=== PATIENT | male | born 1990 | race American Indian/Alaskan Native ===

== ENCOUNTER 2019-08-12 21:56 | Inpatient (IN) | payer OTHER ==
--- NOTE | 2019-08-12 22:27 | Emergency Department Report ---
ED General Adult HPI - General Chief complaint: Psych Stated complaint: METH OD Time Seen by Provider: 08/12/19 22:17 Source: patient, EMS ( EMS documentation not available at time of chart dictation ), RN notes reviewed Mode of arrival: Ambulatory Limitations: No Limitations - History of Present Illness Initial comments: The patient is a 28-year-old gentleman. He is not known to myself previously. He is sent to the emergency room for medical clearance. The patient himself denies physical pain. He states that he had a panic/anxiety attack earlier on today, and recreationally purchased some methamphetamine off of a cellular phone [employer] chicho. He reports that he purchased this for recreational and therapeutic reasons, and denies homicidality and suicidality. He denies coingestions. He denies physical pain at this time. He has no medical complaints at this time. Apparently, he is at a local detox center, and he ran off for 2 days, and r eappeared today. At the moment, the patient is not accompanied by friends, family members or anybody else for additional collateral information. Improves with: none Worsens with: none Associated Symptoms: denies other symptoms - Related Data Allergies Allergy/AdvReac Type Severity Reaction Status Date / Time No Known Allergies Allergy Unverified 08/12/19 22:05 ED Review of Systems ROS: Stated complaint: METH OD Other details as noted in HPI Comment: All other systems reviewed and negative ED Past Medical Hx - Past Medical History Previous Medical History?: No - Surgical History Past Surgical History?: No - Social History Smoking Status: Never Smoker Substance Use Type: Cocaine, Methamphetamines ED Physical Exam - General Limitations: No Limitations General appearance: alert, anxious, obese - Head Head exam: Present: atraumatic, normocephalic - Eye Eye exam: Present: normal appearance, PERRL, EOMI, other (Visual acuity intact to finger counting, color perception, reading at a close distance). Absent: nystagmus - ENT ENT exam: Present: normal exam, normal orophraynx, mucous membranes moist, normal external ear exam - Neck Neck exam: Present: normal inspection, full ROM. Absent: tenderness, meningismus - Respiratory Respiratory exam: Present: normal lung sounds bilaterally. Absent: respiratory distress - Cardiovascular Cardiovascular Exam: Present: normal rhythm, tachycardia, normal heart sounds. Absent: systolic murmur, diastolic murmur, rubs, gallop - GI/Abdominal GI/Abdominal exam: Present: soft. Absent: distended, tenderness, guarding, rebound, rigid, pulsatile mass - Rectal Rectal exam: Present: deferred - Extremities Exam Extremities exam: Present: normal inspection, full ROM, other (2+ pulses noted in the bilateral upper and lower extremities. There is no palpable cord. negative Homans sign. Muscular compartments are soft. The pelvis is stable.). Absent: pedal edema - Back Exam Back exam: Present: normal inspection. Absent: tenderness, CVA tenderness (R), CVA tenderness (L), paraspinal tenderness, vertebral tenderness - Neurological Exam Neurological exam: Present: alert, oriented X3, normal gait, other (There is no facial droop. The tongue is midline. Extraocular movements are intact bilaterally. There is 5 out of 5 strength in bilateral upper and lower extrem ities. Sensation is intact to light touch bilateral upper and lower extremities. There is no past-pointing. There is no pronator drift. There is normal [id number]. There is a normal gait.). Absent: motor sensory deficit - Psychiatric Psychiatric exam: Present: anxious. Absent: homicidal ideation, suicidal ideation - Skin Skin exam: Present: warm ED Course Vital Signs 08/12/19 08/12/19 08/12/19 21:58 22:04 22:07 Temperature 99.1 F Pulse Rate 115 H 122 H Respiratory 19 16 19 Rate Blood Pressure 142/94 [Left] O2 Sat by Pulse 97 Oximetry - Reevaluation(s) Reevaluation #1: 08/12/19 23:42 Change in plans. Patient has CK of 9445,, mild renal insufficiency, meeting definition criteria for rhabdomyolysis. Patient meets criteria for overnight hospitalization/observation/admission for the aforementioned. I discussed plan of care for admission with patient, who verbalized understanding, and who is amenable to this plan of care. I contacted the hospital physician, Dr. Maricarmen Lennon, who has accepted the patient to the medical service. ED Medical Decision Making - Lab Data Result diagrams: 08/12/19 22:35 Vital Signs 08/12/19 08/12/19 08/12/19 21:58 22:04 22:07 Temperature 99.1 F Pulse Rate 115 H 122 H Respiratory 19 16 19 Rate Blood Pressure 142/94 [Left] O2 Sat by Pulse 97 Oximetry - EKG Data -: EKG Interpreted by Me EKG shows normal: sinus rhythm Rate: tachycardia - EKG Data When compared to previous EKG there are: previous EKG unavailable 08/12/19 23:09 This is a sinus rhythm, tachycardia, left axis deviation, left anterior fascicular block, atrial enlargement, poor R wave progression, Q waves noted in the high lateral leads, the EKG is abnormal, there is no prior for comparison, it is not a STEMI - Medical Decision Making Differential diagnosis, including but not limited to: Medical clearance, methamphetamine utilization Assessment and plan: 28-year-old gentleman status post self therapeutic/recreational use of methamphetamine, who is currently afebrile with reassuring vital signs, tachycardia resolved on my exam, when I walked into the room, he is sleeping comfortably, with a heart rate of 103 bpm. He does not endorse any medical complaints at this time. He is alert and oriented x3, clinically sober, walks with a steady gait, he is able to add 5+5, subtract 100-7, multiply 55, and he exhibits decision-making capacity at this time. Screening laboratory studies are sent to exclude myositis, and accidental overdose of aspirin and/or acetaminophen. He is amenable to this plan of care. He was counseled to abstain from consuming recreational drugs. He verbalizes understanding. Critical care attestation.: If time is entered above; I have spent that time in minutes in the direct care of this critically ill patient, excluding procedure time. ED Disposition Clinical Impression: Rhabdomyolysis, Methamphetamine abuse Disposition: OP ADMIT IP TO THIS HOSP Is pt being admited?: Yes Does the pt Need Aspirin: No Condition: Stable Additional Instructions: Recommend that patient not consume methamphetamine or recreational drugs. Recreational drug consumption, along with alcohol consumption and tobacco consumption may cause addiction, disability, , paralysis, loss of quality of life. Recommend follow-up with a primary care doctor within 4 to 6 weeks. Drink 4 to 6 cups of water per day, and take a multivitamin [id number]. Return to the emergency room right away with new, worsened or different symptoms, or symptoms not present on the initial emergency room evaluation. At the moment, the patient does not appear to have an immediate medical contraindication to outpatient discharge, and return to his outpatient detox facility. Referrals: CONCHA VILLAFUERTE MD [Staff Physician] - as needed [facility] [Provider Group] - as needed
[2019-08-12 23:15] LABS: Calcium 9.5 mg/dL (8.4-10.2)
[2019-08-12] MEDS ORDERED: SODIUM CHLORIDE 0.9% 1000 ML 2,000 ML IV ONE (23:39)
[2019-08-12] MEDS ORDERED: SODIUM CHLORIDE 0.9% 1000 ML 1,000 ML IV ONE (23:39)
[2019-08-12] MEDS ORDERED: SODIUM BICARB 8.4% 50 MEQ/50 ML SYRINGE IV ONE (23:40)
[2019-08-12] MEDS ORDERED: diazePAM 10 MG/2 ML SYRINGE IV ONE (23:41)
[2019-08-13] MEDS ORDERED: MAGNESIUM HYDROXIDE (MOM) ORAL LIQD UDC PO PRN (00:06)
[2019-08-13] MEDS ORDERED: ACETAMINOPHEN 325 MG TAB PO PRN (00:06)
[2019-08-13] MEDS ORDERED: ONDANSETRON 4 MG/2 ML INJ IV PRN (00:06)
--- NOTE | 2019-08-13 00:49 | History and Physical Report ---
History of Present Illness Date of examination: 08/13/19 Date of admission: 08/12/19 23:44 Chief complaint: Methamphetamine Ingestion History of present illness: Patient is a 28-year-old male who presents to the emergency room today for medical clearance. He states he has been having some anxiety and admits to taking methamphetamine which he got over an online chicho. He took the medication for recreational and therapeutic purposes and denies any suicidal homicidal ideations. He denies taking any other illicit drug. He was at the local detox center recently and ran of for about 2 days and later reappeared today at the facility. He initially had some chest pain which has since resolved. He denies any shortness of breath, no fever or chills, no nausea vomiting and no abdominal pain. Work-up in the emergency room reveals elevated creatinine kinase and a slightly elevated creatinine level. Past History Past Medical History: No medical history Past Surgical History: No surgical history Social history: other (Methamphetamine abuse, cocaine abuse) Family history: diabetes (Father has history of diabetes mellitus), hypertension (Father has history of hypertension) Medications and Allergies Allergies Allergy/AdvReac Type Severity Reaction Status Date / Time No Known Allergies Allergy Unverified 08/12/19 22:05 Home Medications Medication Instructions Recorded Confirmed Last Taken Type Bupropion HCl [Wellbutrin XL] 300 mg PO QAM 08/13/19 08/13/19 Unknown History Active Meds: Active Medications Acetaminophen (Tylenol) 650 mg PO Q4H PRN PRN Reason: Pain MILD(1-3)/Fever >100.5/GUZMÁN Sodium Chloride (Nacl 0.9% 1000 Ml) 1,000 mls @ 150 mls/hr IV DIRECT SUMI Magnesium Hydroxide (Milk Of Magnesia) 30 ml PO Q4H PRN PRN Reason: Constipation Ondansetron HCl (Zofran) 4 mg IV Q8H PRN PRN Reason: Nausea And Vomiting Sodium Chloride (Sodium Chloride Flush Syringe 10 Ml) 10 ml IV BID SUMI Sodium Chloride (Sodium Chloride Flush Syringe 10 Ml) 10 ml IV PRN PRN PRN Reason: LINE FLUSH Review of Systems Constitutional: no fever, no chills Cardiovascular: chest pain, no palpitations Respiratory: no cough, no shortness of breath Gastrointestinal: no nausea, no vomiting, no diarrhea Genitourinary Male: no dysuria, no hematuria Musculoskeletal: no neck pain, no low back pain Integumentary: no rash, no pruritis Neurological: no headaches, no change in mentation Psychiatric: anxiety, insomnia, no hallucinations Exam - Constitutional Vitals: Temp Pulse Resp BP Pulse Ox 99.1 F 122 H 19 148/90 98 08/12/19 22:04 08/12/19 23:15 08/12/19 23:15 08/13/19 00:15 08/13/19 00:15 General appearance: Present: no acute distress, well-nourished - EENT Eyes: Present: EOM intact ENT: hearing intact, clear oral mucosa, dentition normal - Neck Neck: Present: supple, normal ROM - Respiratory Respiratory effort: normal Respiratory: bilateral: CTA - Cardiovascular Rhythm: regular Heart Sounds: Present: S1 & S2 - Extremities Extremities: no ischemia, pulses intact, pulses symmetrical, No edema, Full ROM - Abdominal General gastrointestinal: Present: soft, non-tender, non-distended - Integumentary Integumentary: Present: clear, warm, dry - Musculoskeletal Musculoskeletal: strength equal bilaterally, other (Dressing over wound on right great toe) - Psychiatric Psychiatric: appropriate mood/affect, intact judgment & insight, cooperative - Neurologic Neurologic: CNII-XII intact, moves all extremities Results - Labs CBC & Chem 7: 08/12/19 22:35 Labs: Abnormal lab results 08/12/19 08/12/19 08/12/19 Range/Units 22:35 22:35 22:35 BUN 21 H (9-20) mg/dL Magnesium 2.50 H (1.7-2.3) mg/dL Total Creatine Kinase 9445 H (55-170) units/L Salicylates < 0.3 L (2.8-20.0) mg/dL Acetaminophen < 5.0 L (10.0-30.0) ug/mL Assessment and Plan - Patient Problems (1) Rhabdomyolysis Current Visit: Yes Status: Acute Plan to address problem: Patient commenced on IV fluid. Will monitor creatinine kinase level (2) Methamphetamine abuse Current Visit: Yes Status: Acute Plan to address problem: Patient counseled on quitting illicit drug use. He may need to be referred to a detox center. (3) DVT prophylaxis Current Visit: Yes Status: Acute Plan to address problem: Patient placed on subcutaneous heparin. (4) Full code status Current Visit: Yes Status: Acute
[2019-08-13] MEDS ORDERED: CETIRIZINE 10 MG TAB PO ONE (03:00)
[2019-08-13] MEDS: SODIUM CHLORIDE 0.9% 1000 ML 1,000 ML IV SCH ×2 (03:37→12:16)
[2019-08-13 04:25] LABS: Bacteria,Urine 1+ /HPF (Negative); Bilirubin,Urine NEG (Negative); Blood,Urine NEG (Negative); Color,Urine Yellow (Yellow); Mucus,Urine FEW /HPF; Protein,Urine <15 mg/dL mg/dL (Negative); Urobilinogen,Urine < 2.0 mg/dL (<2.0); WBC,Urine < 1.0 /HPF (0.0-6.0)
[2019-08-13 04:31] LABS: Benzodiazepines Screen,Urine PRESUMPTIVE NEGATIVE; Cannabinoid Screen,Urine PRESUMPTIVE NEGATIVE; Cocaine Screen,Urine PRESUMPTIVE NEGATIVE; Methadone Screen,Urine PRESUMPTIVE NEGATIVE; Opiate Screen,Urine PRESUMPTIVE NEGATIVE
[2019-08-13 04:48] LABS: Amphetamine Screen,Urine PRESUMPTIVE POSITIVE
--- NOTE | 2019-08-13 10:32 | Event Note ---
Date: 08/13/19 This is a follow-up from an admission earlier this morning. Patient seen and examined. Patient reportedly contemplating leaving AMA. I discussed with the patient importance of completing therapy in the hospital. Patient has agreed to stay for now. Continue to plan as outlined in H&P. Total visit time equals 35 minutes with greater than 50% spent on coordination of care and counseling.
[2019-08-13] MEDS ORDERED: ALPRAZolam 1 MG TAB PO ONE (13:00)
[2019-08-13] MEDS: FLUTICASONE PROPIONATE NASAL SPRAY 16 GM NS PRN (19:04)
[2019-08-13] MEDS: ALPRAZolam 0.25 MG TAB PO PRN (22:15)
[2019-08-14] MEDS: SODIUM CHLORIDE 0.9% 1000 ML 1,000 ML IV SCH (00:54)
[2019-08-14 09:23] LABS: Basophils % (Auto) 0.8 % (0.0-1.8); Eosinophils # (Auto) 0.6 K/mm3 (0.0-0.4); Eosinophils % (Auto) 11.1 % (0.0-4.3); Hematocrit 40.6 % (35.5-45.6); Hemoglobin 13.7 gm/dl (11.8-15.2); Lymphocytes # (Auto) 1.5 K/mm3 (1.2-5.4); Lymphocytes % (Auto) 28.2 % (13.4-35.0); Mean Corpuscular HGB Conc 34 % (32-34); Mean Corpuscular Volume 91 fl (84-94); Monocytes # (Auto) 0.4 K/mm3 (0.0-0.8); Monocytes % (Auto) 7.9 % (0.0-7.3); Platelet Count 156 K/mm3 (140-440); Red Blood Count 4.44 M/mm3 (3.65-5.03); Red Cell Distribution Width 13.4 % (13.2-15.2)
[2019-08-14 09:43] LABS: BUN/Creatinine Ratio 11; Blood Urea Nitrogen 10 mg/dL (9-20); Calcium 8.9 mg/dL (8.4-10.2); Hemolysis Index 8
[2019-08-14 09:51] LABS: INR 0.94 (0.87-1.13)
[2019-08-14] MEDS: ALPRAZolam 0.25 MG TAB PO PRN ×3 (09:51→23:15)
[2019-08-14 09:52] LABS: Partial Thromboplastin Time 28.4 Sec. (24.2-36.6)
--- NOTE | 2019-08-14 10:57 | Progress Note ---
Assessment and Plan Assessment and plan: Rhabdomyolysis. Continue IV fluid hydration. Follow-up CK levels. Methamphetamine abuse. Patient counseled on quitting illicit drug use. He may need to be referred to a detox center. DVT prophylaxis. Continue subcutaneous heparin. History Interval history: No new issues overnight. Hospitalist Physical - Constitutional Vitals: Temp Pulse Resp BP Pulse Ox 99.0 F 85 18 141/78 98 08/14/19 07:34 08/14/19 07:34 08/14/19 07:34 08/14/19 07:34 08/14/19 07:34 General appearance: Present: no acute distress, well-nourished - EENT Eyes: Present: PERRL, EOM intact ENT: hearing intact, clear oral mucosa, dentition normal - Neck Neck: Present: supple, normal ROM - Respiratory Respiratory effort: normal Respiratory: bilateral: CTA - Cardiovascular Rhythm: regular Heart Sounds: Present: S1 & S2. Absent: gallop, rub - Extremities Extremities: no ischemia, No edema, Full ROM - Abdominal General gastrointestinal: soft, non-tender, non-distended, normal bowel sounds - Integumentary Integumentary: Present: clear, warm, dry - Neurologic Neurologic: CNII-XII intact, moves all extremities Results - Labs CBC & Chem 7: 08/14/19 08:39 08/14/19 08:39 Labs: Laboratory Last Values WBC 5.3 K/mm3 (4.5-11.0) 08/14/19 08:39 RBC 4.44 M/mm3 (3.65-5.03) 08/14/19 08:39 Hgb 13.7 gm/dl (11.8-15.2) 08/14/19 08:39 Hct 40.6 % (35.5-45.6) 08/14/19 08:39 MCV 91 fl (84-94) 08/14/19 08:39 MCH 31 pg (28-32) 08/14/19 08:39 MCHC 34 % (32-34) 08/14/19 08:39 RDW 13.4 % (13.2-15.2) 08/14/19 08:39 Plt Count 156 K/mm3 (140-440) 08/14/19 08:39 Lymph % (Auto) 28.2 % (13.4-35.0) 08/14/19 08:39 [place] % (Auto) 7.9 % (0.0-7.3) H 08/14/19 08:39 Eos % (Auto) 11.1 % (0.0-4.3) H 08/14/19 08:39 Baso % (Auto) 0.8 % (0.0-1.8) 08/14/19 08:39 Lymph # 1.5 K/mm3 (1.2-5.4) 08/14/19 08:39 [place] # 0.4 K/mm3 (0.0-0.8) 08/14/19 08:39 Eos # 0.6 K/mm3 (0.0-0.4) H 08/14/19 08:39 Baso # 0.0 K/mm3 (0.0-0.1) 08/14/19 08:39 Seg Neutrophils % 52.0 % (40.0-70.0) 08/14/19 08:39 Seg Neutrophils # 2.7 K/mm3 (1.8-7.7) 08/14/19 08:39 PT 12.7 Sec. (12.2-14.9) 08/14/19 08:39 INR 0.94 (0.87-1.13) 08/14/19 08:39 APTT 28.4 Sec. (24.2-36.6) 08/14/19 08:39 Sodium 139 mmol/L (137-145) 08/14/19 08:39 Potassium 4.4 mmol/L (3.6-5.0) 08/14/19 08:39 Chloride 105.1 mmol/L (98-107) 08/14/19 08:39 Carbon Dioxide 20 mmol/L (22-30) L 08/14/19 08:39 Anion Gap 18 mmol/L 08/14/19 08:39 BUN 10 mg/dL (9-20) 08/14/19 08:39 Creatinine 0.9 mg/dL (0.8-1.5) 08/14/19 08:39 Estimated GFR > 60 ml/min 08/14/19 08:39 BUN/Creatinine Ratio 11 % 08/14/19 08:39 Glucose 104 mg/dL (75-100) H 08/14/19 08:39 Calcium 8.9 mg/dL (8.4-10.2) 08/14/19 08:39 Magnesium 2.50 mg/dL (1.7-2.3) H 08/12/19 22:35 Total Creatine Kinase 6412 units/L (55-170) H 08/13/19 03:14 Urine Color Yellow (Yellow) 08/13/19 03:40 Urine Turbidity Clear (Clear) 08/13/19 03:40 Urine pH 5.0 (5.0-7.0) 08/13/19 03:40 Ur Specific [place] 1.021 (1.003-1.030) 08/13/19 03:40 Urine Protein <15 mg/dl mg/dL (Negative) 08/13/19 03:40 Urine Glucose (UA) Neg mg/dL (Negative) 08/13/19 03:40 Urine Ketones 80 mg/dL (Negative) 08/13/19 03:40 Urine Blood Neg (Negative) 08/13/19 03:40 Urine Nitrite Neg (Negative) 08/13/19 03:40 Urine Bilirubin Neg (Negative) 08/13/19 03:40 Urine Urobilinogen < 2.0 mg/dL (<2.0) 08/13/19 03:40 Ur Leukocyte Esterase Neg (Negative) 08/13/19 03:40 Urine WBC (Auto) < 1.0 /HPF (0.0-6.0) 08/13/19 03:40 Urine RBC (Auto) 1.0 /HPF (0.0-6.0) 08/13/19 03:40 Urine Bacteria (Auto) 1+ /HPF (Negative) 08/13/19 03:40 Urine Mucus Few /HPF 08/13/19 03:40 Salicylates < 0.3 mg/dL (2.8-20.0) L 08/12/19 22:35 Urine Opiates Screen Presumptive negative 08/13/19 03:40 Urine Methadone Screen Presumptive negative 08/13/19 03:40 Acetaminophen < 5.0 ug/mL (10.0-30.0) L 08/12/19 22:35 Ur Barbiturates Screen Presumptive negative 08/13/19 03:40 Ur Phencyclidine Scrn Presumptive negative 08/13/19 03:40 Ur Amphetamines Screen Presumptive positive 08/13/19 03:40 U Benzodiazepines Scrn Presumptive negative 08/13/19 03:40 Urine Cocaine Screen Presumptive negative 08/13/19 03:40 U Marijuana (THC) Screen Presumptive negative 08/13/19 03:40 Drugs of Abuse Note Disclamer 08/13/19 03:40 Plasma/Serum Alcohol < 0.01 % (0-0.07) 08/12/19 22:35 Mccarty/IV: Voiding Method Urinal IV Catheter Type [Right ac] Peripheral IV Active Medications - Current Medications Current Medications: Generic Name Dose Route Start Last Admin Trade Name Freq PRN Reason Stop Dose Admin Acetaminophen 650 mg 08/13/19 00:06 Tylenol PO Q4H PRN Pain MILD(1-3)/Fever >100.5/GUZMÁN Alprazolam 0.25 mg 08/13/19 21:25 08/14/19 09:51 Xanax PO 0.25 mg Q6H PRN Administration Anxiety Fluticasone Propionate 100 mcg 08/13/19 18:06 08/13/19 19:04 Flonase NS 100 mcg QDAY PRN Administration Allergy Symptoms Sodium Chloride 1,000 mls @ 150 mls/hr 08/13/19 00:15 08/14/19 00:54 Nacl 0.9% 1000 Ml IV 150 mls/hr DIRECT SUMI Administration Magnesium Hydroxide 30 ml 08/13/19 00:06 Milk Of Magnesia PO Q4H PRN Constipation Ondansetron HCl 4 mg 08/13/19 00:06 Zofran IV Q8H PRN Nausea And Vomiting Sodium Chloride 10 ml 08/13/19 10:00 08/14/19 09:40 Sodium Chloride Flush Syringe 10 Ml IV 10 ml BID SUMI Administration Sodium Chloride 10 ml 08/13/19 00:06 Sodium Chloride Flush Syringe 10 Ml IV PRN PRN LINE FLUSH
[2019-08-14 13:02] LABS: BUN/Creatinine Ratio 11; Blood Urea Nitrogen 10 mg/dL (9-20); Calcium 9.2 mg/dL (8.4-10.2); Hemolysis Index 3
[2019-08-14] MEDS: FLUTICASONE PROPIONATE NASAL SPRAY 16 GM NS PRN (17:59)
[2019-08-15] MEDS: ALPRAZolam 0.25 MG TAB PO PRN (08:15)
--- NOTE | 2019-08-15 10:29 | Progress Note ---
Assessment and Plan Assessment and plan: Rhabdomyolysis. Continue IV fluid hydration. Follow-up CK levels. Methamphetamine abuse. Patient counseled on quitting illicit drug use. He may need to be referred to a detox center. DVT prophylaxis. Continue subcutaneous heparin. Hospitalist Physical - Constitutional Vitals: Temp Pulse Resp BP Pulse Ox 97.7 F 77 18 98/51 96 08/15/19 07:44 08/15/19 09:51 08/15/19 09:51 08/15/19 07:44 08/15/19 09:51 General appearance: Present: no acute distress, well-nourished Results - Labs CBC & Chem 7: 08/14/19 08:39 08/14/19 12:06 Labs: Laboratory Last Values WBC 5.3 K/mm3 (4.5-11.0) 08/14/19 08:39 RBC 4.44 M/mm3 (3.65-5.03) 08/14/19 08:39 Hgb 13.7 gm/dl (11.8-15.2) 08/14/19 08:39 Hct 40.6 % (35.5-45.6) 08/14/19 08:39 MCV 91 fl (84-94) 08/14/19 08:39 MCH 31 pg (28-32) 08/14/19 08:39 MCHC 34 % (32-34) 08/14/19 08:39 RDW 13.4 % (13.2-15.2) 08/14/19 08:39 Plt Count 156 K/mm3 (140-440) 08/14/19 08:39 Lymph % (Auto) 28.2 % (13.4-35.0) 08/14/19 08:39 [place] % (Auto) 7.9 % (0.0-7.3) H 08/14/19 08:39 Eos % (Auto) 11.1 % (0.0-4.3) H 08/14/19 08:39 Baso % (Auto) 0.8 % (0.0-1.8) 08/14/19 08:39 Lymph # 1.5 K/mm3 (1.2-5.4) 08/14/19 08:39 [place] # 0.4 K/mm3 (0.0-0.8) 08/14/19 08:39 Eos # 0.6 K/mm3 (0.0-0.4) H 08/14/19 08:39 Baso # 0.0 K/mm3 (0.0-0.1) 08/14/19 08:39 Seg Neutrophils % 52.0 % (40.0-70.0) 08/14/19 08:39 Seg Neutrophils # 2.7 K/mm3 (1.8-7.7) 08/14/19 08:39 PT 12.7 Sec. (12.2-14.9) 08/14/19 08:39 INR 0.94 (0.87-1.13) 08/14/19 08:39 APTT 28.4 Sec. (24.2-36.6) 08/14/19 08:39 Sodium 140 mmol/L (137-145) 08/14/19 12:06 Potassium 4.8 mmol/L (3.6-5.0) 08/14/19 12:06 Chloride 104.0 mmol/L (98-107) 08/14/19 12:06 Carbon Dioxide 22 mmol/L (22-30) 08/14/19 12:06 Anion Gap 19 mmol/L 08/14/19 12:06 BUN 10 mg/dL (9-20) 08/14/19 12:06 Creatinine 0.9 mg/dL (0.8-1.5) 08/14/19 12:06 Estimated GFR > 60 ml/min 08/14/19 12:06 BUN/Creatinine Ratio 11 % 08/14/19 12:06 Glucose 100 mg/dL (75-100) 08/14/19 12:06 Calcium 9.2 mg/dL (8.4-10.2) 08/14/19 12:06 Magnesium 2.50 mg/dL (1.7-2.3) H 08/12/19 22:35 Total Creatine Kinase 1762 units/L (55-170) H 08/15/19 07:05 Urine Color Yellow (Yellow) 08/13/19 03:40 Urine Turbidity Clear (Clear) 08/13/19 03:40 Urine pH 5.0 (5.0-7.0) 08/13/19 03:40 Ur Specific [place] 1.021 (1.003-1.030) 08/13/19 03:40 Urine Protein <15 mg/dl mg/dL (Negative) 08/13/19 03:40 Urine Glucose (UA) Neg mg/dL (Negative) 08/13/19 03:40 Urine Ketones 80 mg/dL (Negative) 08/13/19 03:40 Urine Blood Neg (Negative) 08/13/19 03:40 Urine Nitrite Neg (Negative) 08/13/19 03:40 Urine Bilirubin Neg (Negative) 08/13/19 03:40 Urine Urobilinogen < 2.0 mg/dL (<2.0) 08/13/19 03:40 Ur Leukocyte Esterase Neg (Negative) 08/13/19 03:40 Urine WBC (Auto) < 1.0 /HPF (0.0-6.0) 08/13/19 03:40 Urine RBC (Auto) 1.0 /HPF (0.0-6.0) 08/13/19 03:40 Urine Bacteria (Auto) 1+ /HPF (Negative) 08/13/19 03:40 Urine Mucus Few /HPF 08/13/19 03:40 Salicylates < 0.3 mg/dL (2.8-20.0) L 08/12/19 22:35 Urine Opiates Screen Presumptive negative 08/13/19 03:40 Urine Methadone Screen Presumptive negative 08/13/19 03:40 Acetaminophen < 5.0 ug/mL (10.0-30.0) L 08/12/19 22:35 Ur Barbiturates Screen Presumptive negative 08/13/19 03:40 Ur Phencyclidine Scrn Presumptive negative 08/13/19 03:40 Ur Amphetamines Screen Presumptive positive 08/13/19 03:40 U Benzodiazepines Scrn Presumptive negative 08/13/19 03:40 Urine Cocaine Screen Presumptive negative 08/13/19 03:40 U Marijuana (THC) Screen Presumptive negative 08/13/19 03:40 Drugs of Abuse Note Disclamer 08/13/19 03:40 Plasma/Serum Alcohol < 0.01 % (0-0.07) 08/12/19 22:35 Mccarty/IV: Voiding Method Urinal IV Catheter Type [Right ac] Peripheral IV Active Medications - Current Medications Current Medications: Generic Name Dose Route Start Last Admin Trade Name Freq PRN Reason Stop Dose Admin Acetaminophen 650 mg 08/13/19 00:06 Tylenol PO Q4H PRN Pain MILD(1-3)/Fever >100.5/GUZMÁN Alprazolam 0.25 mg 08/13/19 21:25 08/15/19 08:15 Xanax PO 0.25 mg Q6H PRN Administration Anxiety Fluticasone Propionate 100 mcg 08/13/19 18:06 08/14/19 17:59 Flonase NS 100 mcg QDAY PRN Administration Allergy Symptoms Sodium Chloride 1,000 mls @ 150 mls/hr 08/13/19 00:15 08/14/19 00:54 Nacl 0.9% 1000 Ml IV 150 mls/hr DIRECT SUMI Administration Magnesium Hydroxide 30 ml 08/13/19 00:06 Milk Of Magnesia PO Q4H PRN Constipation Ondansetron HCl 4 mg 08/13/19 00:06 Zofran IV Q8H PRN Nausea And Vomiting Sodium Chloride 10 ml 08/13/19 10:00 08/15/19 09:23 Sodium Chloride Flush Syringe 10 Ml IV 10 ml BID SUMI Administration Sodium Chloride 10 ml 08/13/19 00:06 Sodium Chloride Flush Syringe 10 Ml IV PRN PRN LINE FLUSH
[2019-08-15 11:14] VITALS: BP 142/84
--- NOTE | 2019-08-15 12:03 | Discharge Summary ---
Providers - Providers Date of Admission: 08/15/19 08:19 Date of discharge: 08/15/19 Attending physician: DEWIN FRANK Primary care physician: FORTUNE COOKIE MAKER Hospitalization Condition: Fair Hospital course: Patient is a 28-year-old male who presented to the emergency room for medical clearance. He states he has been having some anxiety and admits to taking methamphetamine which he got over an online chicho. He took the medication for recreational and therapeutic purposes and denies any suicidal homicidal ideations. He denies taking any other illicit drug. He was at the local detox center recently and ran of for about 2 days and later reappeared today at the facility. He initially had some chest pain which has since resolved. He denies any shortness of breath, no fever or chills, no nausea vomiting and no abdominal pain. He was seen and evaluated in Ed and diagnosed with acute rhabdomyolysis with Creatinine kinase of 9445 . He was admitted, started on iv fluid. he refused most of iv fluids. Creatine kinase improved, went down to 1762. However on 08/15/19, he stated he wants to leave and signed out and left against medical advice. Total time spent on discharge, 35 mins Disposition: [id number] LEFT AGAINST MED ADVICE - Discharge Diagnoses (1) Methamphetamine abuse Status: Acute (2) Rhabdomyolysis Status: Acute (3) BRANDEN (acute kidney injury) Status: Acute (4) Vasomotor nephropathy Status: Acute Core Measure Documentation - Palliative Care Palliative Care/ Comfort Measures: Not Applicable - Core Measures Any of the following diagnoses?: none Exam - Constitutional Vitals: Temp Pulse Resp BP Pulse Ox 98.6 F 78 18 142/84 96 08/15/19 11:09 08/15/19 11:09 08/15/19 11:09 08/15/19 11:09 08/15/19 11:09 Plan Follow up with: [facility] [Provider Group] - as needed CONCHA VILLAFUERTE MD [Staff Physician] - as needed Forms: AMA Form
== END 2019-08-15 11:41 | disposition left against medical advice (07) | DRG 557 ==
LOC: ED 21:56 → 4A 23:44 → OBSVTOIN 08-15 08:19
PROVIDERS: ADMIT Internal Medicine Geriatric Medicine; ATTEND Internal Medicine
DX: M62.82 Rhabdomyolysis (principal); F15.10 Other stimulant abuse, uncomplicated; N17.0 Acute kidney failure with tubular necrosis; Z79.899 Other long term (current) drug therapy
CPT/HCPCS: 36415; 80048; 80307; 80320; 81001; 82550; 83735; 85025; 85610; 85730; 93005; 93010; G0378; G0480; J3360; J7030